=== PATIENT | male | born 1990 | race Caucasian/White ===

== ENCOUNTER 2016-07-06 09:33 | Day surgery (SDC) | payer OTHER ==
[2016-07-06] MEDS ORDERED: MIDAZOLAM 2 MG/2 ML INJ ONE (10:06)
[2016-07-06] MEDS ORDERED: FENTANYL CITRATE INJ/PF 100 MCG/2 ML AMPUL ONE (10:06)
[2016-07-06] MEDS ORDERED: HYDROMORPHONE HCL INJ/PF 2 MG/ML AMPULE ONE (10:06)
[2016-07-06] MEDS ORDERED: ONDANSETRON HCL INJ/PF 4 MG/2 ML SDV ONE (10:06)
[2016-07-06] MEDS ORDERED: DEXAMETHASONE SOD PHOS INJ 10 MG/1 ML VIAL ONE (10:06)
[2016-07-06] MEDS ORDERED: SUCCINYLCHOLINE CHLORIDE INJ 200 MG/10 ML VIAL ONE (10:07)
[2016-07-06] MEDS ORDERED: PROPOFOL INJ 200 MG/20 ML VIAL IV ONE (10:07)
[2016-07-06] MEDS ORDERED: LIDOCAINE 2%/EPINEPHRINE INJ 20 ML VIAL ONE (10:19)
[2016-07-06] MEDS ORDERED: OXYMETAZOLINE HCL 0.05% NASAL SPRAY 15 ML BOTTLE ONE (10:19)
--- NOTE | 2016-07-06 15:43 | OPERATIVE REPORT E ---
Operative Report NAME: MASSIEL RODRIGUEZ : 1990 AGE: 25Y DATE OF SURGERY: 07/06/2016 ROOM: INDICATIONS FOR SURGERY: This is a 25-year-old male with a history of deviated septum and chronic nasal obstruction. Please see his outpatient medical record for complete details regarding his medical history and examination. PREOPERATIVE DIAGNOSES: 1. DEVIATED NASAL SEPTUM. 2. NASAL OBSTRUCTION BILATERAL. 3. INFERIOR TURBINATE HYPERTROPHY BILATERAL. POSTOPERATIVE DIAGNOSES: 1. DEVIATED NASAL SEPTUM. 2. NASAL OBSTRUCTION BILATERAL. 3. INFERIOR TURBINATE HYPERTROPHY BILATERAL. OPERATION: 1. Septoplasty. 2. Fracture of inferior nasal turbinates. 3. Submucosal resection of turbinates. FINDINGS: 1. Deviated nasal septum. 2. Inferior turbinate hypertrophy. SURGEON: DEDRA ABERNATHY M.D. ESTIMATED BLOOD LOSS: 20 mL. PROCEDURE: After properly identifying the patient, obtaining informed consent and verifying the surgical site, the patient was brought to the main operating room, placed in the supine position and general endotracheal anesthesia was attained in the standard fashion. Surgical time-out was then performed. The nose was prepped in the usual fashion with topical Afrin on cotton pledgets as well as direct infiltration of the nasal septum and inferior turbinates with 2% lidocaine with 1:100,000 epinephrine. The patient was then draped in the usual manner for nasal surgery. A hemitransfixion incision was sharply made and the mucoperichondrium periosteal flaps were then elevated. The bony cartilaginous junction of the septum was identified and disarticulated and a contralateral mucoperiosteal flap was then elevated. An incision was made 1 cm from the caudal margin on the quadrangular cartilage and a contralateral mucoperichondrial flap was elevated with careful attention to maintain 1 cm dorsal and caudal struts. Deviated portions of the quadrangular cartilage were then conservatively resected. Next, a double-action scissors was used to make an incision in the perpendicular plate of the ethmoid and vomer and the deviated portions of the bony septum were then resected. Next, additional deviated portions of the maxillary crest were taken down with the V chisel and osteotome. The hemitransfixion incision was then reapproximated with running 4-0 chromic suture and a whipstitch was then placed back and forth across the septum to reapproximate the mucoperichondrial periosteal flaps. Next, the inferior turbinates were addressed, first right and then left. An incision was made at the head of the turbinate and the soft tissue was raised off of the bony section and then the submucosal resection of the extra mucosa was then performed with the microdebrider. This was then followed by bilateral inferior turbinate outfracture in an anterior to posterior direction. Next, bacitracin-soaked splints were then placed into each nasal cavity and affixed anteriorly using a 2-0 Prolene suture. At this point in time, the case was concluded. The patient was returned to anesthesia. He was extubated, awoke in the operating room and taken to the PACU in stable condition having tolerated the procedure well. DICTATING PHYSICIAN: DEDRA ABERNATHY M.D. [id number] PHY#: [id number] ID: [id number] JOB#: [id number] ACCT: [id number] cc:DEDRA ABERNATHY M.D. >
== END 2016-07-06 13:02 | disposition home or self-care (01) ==
LOC: SC 09:33
PROVIDERS: ATTEND Otolaryngology
PROC: 09TL8ZZ Resection of Nasal Turbinate, Via Natural or Artificial Opening Endoscopic (ICD-10-PCS; 2016-07-06)
PROC: 09BM4ZZ Excision of Nasal Septum, Percutaneous Endoscopic Approach (ICD-10-PCS; principal; 2016-07-06 10:45)
DX: J34.2 Deviated nasal septum (principal); J34.3 Hypertrophy of nasal turbinates; J34.89 Other specified disorders of nose and nasal sinuses
CPT/HCPCS: 30140; 30520; J2250; J3490 ×2; J1170; J0330; J2405; J2704; J1100; 160; J3010